=== PATIENT | female | born 1965 | race Caucasian/White ===

== ENCOUNTER 2023-03-10 11:53 | Day surgery (SDC) | payer BC ==
[2023-03-10] MEDS ORDERED: Xylocaine-Mpf 2% 5 Ml Vial IJ ONE (11:54)
[2023-03-10] MEDS ORDERED: Depo-Medrol 40 MG/ML IM ONE (11:54)
[2023-03-10] MEDS ORDERED: DIPRIVAN 200 MG/20 ML IV ONE (14:01)
[2023-03-10] MEDS ORDERED: Lactated Ringers 1,000 ML IV ONE (14:51)
--- NOTE | 2023-03-10 15:04 | XRAY ---
Indication: Bilateral L4-S1 MBB. Intraoperative fluoroscopy provided for 16 seconds. Single digital spot image submitted for interpretation demonstrates posterior needle tips projecting over the expected left and right L4-S1 nerve roots. Correlate with intraoperative findings/report.
--- NOTE | 2023-03-10 15:09 | XRAY ---
16 seconds of fluoroscopy was used in surgery for a bilateral L4-S1 MBB.
== END 2023-03-10 14:28 | disposition home or self-care (01) ==
LOC: SDC-PAIN 11:53
PROVIDERS: ATTEND Psychiatry & Neurology Pain Medicine
DX: M47.816 Spondylosis without myelopathy or radiculopathy, lumbar region (principal)
CPT/HCPCS: 64494; 64495; 72020; 77002; J1030; J2704